=== PATIENT | male | born 1975 | race American Indian/Alaskan Native ===

== ENCOUNTER 2018-07-10 07:26 | Day surgery (SDC) | payer BC ==
[2018-07-10] MEDS ORDERED: Lactated Ringer's 500 ML IV ONE (08:27)
[2018-07-10] MEDS ORDERED: Propofol 10 mg/ml Inj (20 ML) ONE ×2 (08:31→09:14)
[2018-07-10] MEDS ORDERED: Glucagon Recombinant 1 mg Inj ONE (09:56)
[2018-07-10 10:42] VITALS: TEMP 98
[2018-07-10 10:51] VITALS: BP 116/70; PULSE 58; RESP 20; O2SAT 100
== END 2018-07-10 11:00 | disposition home or self-care (01) ==
LOC: C.ENDO 07:26
PROVIDERS: ATTEND Internal Medicine Gastroenterology
DX: K63.9 Disease of intestine, unspecified (principal); K64.1 Second degree hemorrhoids; Z80.0 Family history of malignant neoplasm of digestive organs
CPT/HCPCS: 45380; 88305; J1610; J2704; J7120